=== PATIENT | male | born 1955 | race Caucasian/White ===

== ENCOUNTER 2023-05-01 10:19 | Emergency (ER) | payer MEDICARE, BC, SELFPAY ==
[2023-05-01 10:21] VITALS: BP 156/80; PULSE 78; RESP 18; TEMP 35.5; O2SAT 96; BMI 38.7
[2023-05-01 11:21] LABS: Absolute Neutrophil Count 3.5 X10^3/uL (2.0-7.7); Basophil# 0.02 X10^3/uL; Basophil% 0.4 % (0-1); Eosinophil# 0.09 X10^3/uL; Eosinophils% 1.6 % (0-5); Hematocrit 39.1 % (40-54); Hemoglobin 13.5 g/dL (13.0-16.5); Lymphocyte % 23.4 % (19-41); Mean Corp Hgb Conc 34.5 g/dL (32-36); Mean Corpuscular Hgb 30.9 pg (27.0-32.0); Mean Corpuscular Volume 89.5 fL (80-94); Mean Platelet Vol. 9.4 fl (6.2-12.0); Monocyte# 0.65 X10^3/uL; Monocyte% 11.7 % (0-10); NRBC Flagged by Analyzer 0 % (0-5); Neutrophil # 3.47 X10^3/uL (2.7-7.7); Neutrophil % 62.4 % (47-70); Platelet Count 179 K/mm3 (150-450); RBC Distribution Width CV 12.6 % (11.6-14.6); RBC Distribution Width SD 41.3 fl (35.1-43.9); Red Blood Count 4.37 M/mm3 (4.6-6.2); White Blood Count 5.6 K/mm3 (4.4-11.0)
--- NOTE | 2023-05-01 11:24 | EX.ED.DYSGE1 ---
HPI History of Present Illness Chief Complaint: Cellulitis Informant: patient Narrative Narrative: 67-year-old male presenting to the emergency room with infection of the right leg. Patient states that just over a week ago he sustained a puncture wound from a piece of wound to the right mid tibial region. He states that it went in pretty deep. He describes a serosanguineous like drainage. He has been on doxycycline without improvement. He notes localized swelling. Denies any thigh symptoms, fever, or history of diabetes. He has been using Neosporin on the wound since the injury. [facility] Medical History HTN (hypertension) Home Medications clindamycin HCl 300 mg capsule 300 mg PO Q6H 10 days #40 caps 05/01/23 [Rx Last Taken Unknown] Allergy/AdvReac Type Severity Reaction Status Date / Time Sulfa (Sulfonamide AdvReac Intermediate Rash Verified 05/01/23 10:21 Antibiotics) Social History Smoking Status: Current some day smoker tobacco type: cigars ROS ROS ED Constitutional Constitutional ED: Denies chills, fever(s) or weight loss Eyes Eyes: Denies change in vision or diplopia ENT ENT ED: Denies ear pain, rhinorrhea or sore throat Cardiovascular Cardiovascular: Denies chest pain, orthopnea, palpitations or racing heartbeat Respiratory/Chest Respiratory/Chest: Denies cough, dyspnea or orthopnea Gastrointestinal Gastrointestinal: Denies abdominal pain, diarrhea, nausea or vomiting Genitourinary Genitourinary ED: Denies dysuria, hematuria or urinary frequency Musculoskeletal Musculoskeletal: Denies arthralgias or myalgias Integumentary Reports other Details: See HPI ; Denies abscess or rash Neurologic Neurologic: Denies headache(s) or weakness Psychiatric Psychiatric: Denies anxiety, depression, suicidal ideation or suicidal thoughts Endocrine Endocrinology: Denies polydipsia, polyphagia or polyuria Allergic/Immunologic Allergic/Immunologic ED: Denies mouth swelling, tongue swelling or urticaria EXAM Physical Exam Const Vital Signs: 05/01/23 10:21 Temperature 96 F L Temperature Source Temporal Pulse Rate 78 Respiratory Rate 18 Blood Pressure 156/80 H Blood Pressure Mean 105 Pulse Ox 96 Oxygen Delivery Method Room Air Positive well nourished and well developed General Appearance ED: well developed HEENT Reports normocephalic, head/scalp atraumatic and moist mucous membranes Eyes PERRL and EOMs intact bilaterally Neck no lymphadenopathy, supple and no JVD Resp normal respiratory effort and clear to auscultation bilaterally Cardio regular rate, regular rhythm and no murmurs GI normal to inspection, nondistended, normoactive bowel sounds and non-tender Palpation: soft Back/Spine no CVA tenderness and normal ROM Extremity Extremity Narrative: Mid right tibia just lateral to the tibial spine is a puncture wound that is healing. There is some surrounding erythema and localized swelling. The calf is soft nontender with no palpable cords in the calf or thigh. There is no lymphangitic streaking. General Extremety ED: Negative for edema General Extremity: Negative for edema Neuro oriented x3 and CN's II-XII intact bilaterally Sensorium / Orientation: alert Motor Exam: strength 5/5 throughout Psych mental status grossly normal Mood & Affect: Negative for depressed or tearful Skin General Skin Exam: elasticity normal; Negative for jaundice Wounds: wounds noted MDM MDM MDM Narrative Medical decision making narrative: My interpretation of the plain films of the right tib-fib there is no obvious foreign body. Soft tissue swelling noted. Most likely been going distal bone lesions. X-ray findings discussed with patient. I am unable to express any pus from the wound. There is a very minimal serosanguineous drainage. Bedside ultrasound I do not see any significantly large foreign body. I do not see any collections of pus. He is not have a fever there is no lymphangitic streaking and his white count is normal. Patient has a sulfa allergy. I will begin him on a 10-day course of clindamycin. He has declined pain medication. He understands return instructions as well as follow-up. I advised him to go ahead and discontinue the Neosporin ointment. I do not think he has DVT. The calf is soft no palpable cords. This appears to be localized swelling from the infection. Lab Data Attestation: I reviewed the patient's lab results. Labs: Laboratory Results - last 24 hr 05/01/23 11:00 WBC 5.6 RBC 4.37 L Hgb 13.5 Hct 39.1 L MCV 89.5 MCH 30.9 MCHC 34.5 RDW Std Deviation 41.3 RDW Coeff of Collin 12.6 Plt Count 179 MPV 9.4 Immature Gran % (Auto) 0.500 Neut % (Auto) 62.4 Lymph % (Auto) 23.4 Mcdonough % (Auto) 11.7 H Eos % (Auto) 1.6 Baso % (Auto) 0.4 Absolute Neuts (auto) 3.5 Absolute Lymphs (auto) 1.30 Nucleated RBC % 0 Sodium 138 Potassium 4.2 Chloride 106 Carbon Dioxide 26.0 Anion Gap 6 BUN 28 H Creatinine 1.37 H Estim Creat Clear Calc 45.92 Est GFR (MDRD) Af Amer 66 Est GFR (MDRD) Non-Af 55 L BUN/Creatinine Ratio 20.4 H Glucose 94 Calcium 9.0 Radiography Diagnostic Testing: Clinical Impression(s) from Imaging Studies Tibia/Fibula X-Ray 05/01/23 11:35 IMPRESSION: 1. Soft tissue swelling. 2. Lucency in the distal fibula could represent benign bone lesion. Chronic osteomyelitis is less likely. 3. If symptoms persist, MRI might add additional formation. Electronically Signed: Adalberto Delaney MD at 12:17 EDT , Discharge Plan Triage Chief Complaint: Cellulitis ED Provider: Lex Artis Dx/Rx/DC Orders Clinical Impression: Puncture wound of right lower extremity, Cellulitis of leg, right Instructions: ED Cellulitis Prescriptions: New clindamycin HCl 300 mg capsule 300 mg PO Q6H 10 Days Qty: 40 0RF Primary Care Provider: ALBERT CLARKE Referrals: Care Physician,No Primary [Non-Staff] - Activity Restrictions/Additional Instructions: Please follow-up with Dr. Friedman in 7 to 10 days. Please go to the emergency department if fever red streaks worsening or concerns. Disposition Disposition: Home, Self Care
--- NOTE | 2023-05-01 11:35 | RAD_ITS ---
INDICATION: infection EXAMINATION/TECHNIQUE: X-RAY - RIGHT XR Tibia/Fibula 2 Views 4 VIEWS COMPARISON: No prior examinations are available for comparison. FINDINGS: SOFT TISSUES: Mild soft tissue swelling of the lateral aspect of the right lower leg. No radiopaque foreign body. BONES/JOINTS: No acute fracture or subluxation.. Disease in the distal fibula with questionable expansion distal fibula could represent benign bone tumor such as aneurysmal bone cyst or giant cell tumor. Chronic osteomyelitis is doubtful. Preservation of the joint space.. No sclerotic or destructive changes observed. RAD/Tibia & Fibula 2 Views IMPRESSION: 1. Soft tissue swelling. 2. Lucency in the distal fibula could represent benign bone lesion. Chronic osteomyelitis is less likely. 3. If symptoms persist, MRI might add additional formation. Electronically Signed: Adalberto Delaney MD at 12:17 EDT ,
[2023-05-01 11:44] LABS: Anion Gap 6 (5-15); BUN 28 mg/dL (7-18); BUN/Creat Ratio 20.4 RATIO (10-20); Chloride 106 mmol/L (98-107); Creatinine, Serum 1.37 mg/dL (0.70-1.30); EST Glomerular Filtration Rate 55 mL/min (>60); Est Glom Filt Rate - Afr Amer 66 mL/min (>60); Estimated Creatinine Clearance 45.92 ml/min; Glucose 94 mg/dL (74-106); Potassium 4.2 mmol/L (3.5-5.1); Sodium Level 138 mmol/L (136-145)
[2023-05-01 12:31] VITALS: PULSE 76; RESP 18; O2SAT 97
== END 2023-05-01 12:32 | disposition home or self-care (01) ==
PROVIDERS: Emergency Provider Emergency Medicine; Visit Provider Emergency Medicine
DX: S81.831A Puncture wound without foreign body, right lower leg, initial encounter (principal); L03.115 Cellulitis of right lower limb; I10 Essential (primary) hypertension; F17.290 Nicotine dependence, other tobacco product, uncomplicated; W26.8XXA Contact with other sharp object(s), not elsewhere classified, initial encounter
CPT/HCPCS: 73590; 80048; 85025; 99282; A4216